=== PATIENT | female | born 1990 | race Caucasian/White ===

== ENCOUNTER → 2017-06-19 | Outpatient (CLI) | payer BC ==
[~2017-06-19] MED LIST: CIPR500 PO; FLUC150A PO; HYDACE5 PO; IBUP600 PO; IBUP800 PO; IRON; METO10 PO; MULVITMINE PO; NYST100P TOP; NYST100TC TOP; OXYACE5T PO; PRENATALS; PROM25 PO
[2017-06-20 10:47] LABS: Candida species (DNA Probe) Negative (NEGATIVE); G. vaginalis (DNA Probe) Negative (NEGATIVE); T. vaginalis (DNA Probe) Negative (NEGATIVE)
== END | disposition home or self-care (01) ==
LOC: LAB 09:35
PROVIDERS: Physician Assistant
DX: N89.8 Other specified noninflammatory disorders of vagina (principal)
CPT/HCPCS: 87480; 87510; 87660

== ENCOUNTER → 2018-05-04 | Outpatient (CLI) | payer BC | LOC: LAB 12:15 → LAB SHORT 12:15 | DX: L08.89 Other specified local infections of the skin and subcutaneous tissue (principal) | CPT/HCPCS: 87070; 87205 ==

== ENCOUNTER 2021-01-18 06:10 | Day surgery (SDC) | payer BC ==
[~2021-01-18] VITALS: Ht 162.6 cm; Wt 111.0 kg
[2021-01-18] MEDS ORDERED: Lamictal150 MG PO (06:39)
[2021-01-18] MEDS ORDERED: CLON.5 PO (06:40)
--- NOTE | 2021-01-18 07:14 | NUR ---
ALMOST ALL JEWELRY REMOVED. ONE PIERCING REMAINS IN RIGHT UPPER EAR, TAPED AND PATIENT SIGNED NON-REMOVAL FORM.
--- NOTE | 2021-01-18 07:28 | NUR ---
PT ALSO HAS PIERCING IN RT NOSTRIL THAT HAS BEEN TAPED. SHE HAS SIGNED THE NON-REMOVAL FORM.
--- NOTE | 2021-01-18 08:46 | NUR ---
Discharge instructions reviewed with patient. Patient verbalizes understanding. Copy given to patient to take home.
--- NOTE | 2021-01-18 08:59 | NUR ---
Discharged via wheelchair to private car for ride home.
== END 2021-01-18 09:00 | disposition home or self-care (01) ==
LOC: ORSCMMR 06:10 → ORSCSDS 07:30 → ORSCMMR 07:30 → ORD 07:30 → ORSCMMR 09:00
PROVIDERS: Obstetrics & Gynecology
PROC: 0UPD8HZ Removal of Contraceptive Device from Uterus and Cervix, Via Natural or Artificial Opening Endoscopic (ICD-10-PCS; principal; 2021-01-18 07:30)
DX: T83.32XA Displacement of intrauterine contraceptive device, initial encounter (principal); Z79.899 Other long term (current) drug therapy
CPT/HCPCS: 88300; A9270; J1100; J2405; J2704; J3010; J7120

== ENCOUNTER 2024-12-17 00:24 | Emergency (ER) | payer OTHER ==
[~2024-12-17] VITALS: Ht 157.5 cm; Wt 113.4 kg
[~2024-12-17 00:24] MED LIST changes: +CLON.5 PO; +Lamictal150 MG PO
[2024-12-17] MEDS ORDERED: Ondansetron HCl 2 MG / ML 2ML Vial IV PRN (01:05)
[2024-12-17 01:12] LABS: BASOPHILS ABSOLUTE AUTO 0.03 K/mm3 (0.00-0.23); BASOPHILS PERCENT AUTO 0 % (0-2); EOSINOPHILS ABSOLUTE AUTO 0.12 K/mm3 (0.00-0.68); EOSINOPHILS PERCENT AUTO 1 % (0-6); Hematocrit 36.2 % (33.0-51.0); Hemoglobin 12.0 g/dL (11.5-16.0); IMMATURE GRAN ABSOLUTE AUTO 0.04 K/mm3 (0.00-0.10); IMMATURE GRAN PERCENT AUTO 0 % (0-1); LYMPHOCYTES ABSOLUTE AUTO 2.18 K/mm3 (0.84-5.20); LYMPHOCYTES PERCENT AUTO 22 % (21-46); MONOCYTES ABSOLUTE AUTO 0.69 K/mm3 (0.16-1.47); MONOCYTES PERCENT AUTO 7 % (4-13); Mean Corpuscular HGB Conc 33.1 g/dL (31.5-36.5); Mean Corpuscular Volume 84 fL (80-100); NEUTROPHILS ABSOLUTE AUTO 7.02 K/mm3 (1.96-9.15); NEUTROPHILS PERCENT AUTO 70 % (41-73); NRBC ABSOLUTE 0.00 K/mm3 (0.00-0.02); NRBC Auto 0.0 /100 WBC (0.0-0.2); Platelet Count 225 K/mm3 (150-400); RDW Coefficient Variation 13.2 % (11.7-14.2); RDW Standard Deviation 40.9 fL (35.1-46.3)
[2024-12-17 01:13] LABS: Source, Urine Clean Catch
[2024-12-17 01:25] LABS: Bilirubin, Urine Neg (Neg); Glucose Qualitative, Urine Neg (Neg); Ketones, Urine Neg (Neg); Leukocyte Esterase, Urine Neg (Neg); Protein, Urine 1+ (Neg); Specific Gravity, Urine 1.015 (1.003-1.022); Urobilinogen, Urine 2+ (Normal)
[2024-12-17 01:30] LABS: Color, Urine Yellow (P-Yellow)
[2024-12-17 01:32] LABS: Red Blood Cells, Urine 0-2 /hpf (0-2); White Blood Cells, Urine 0-2 /hpf (0-5)
[2024-12-17 01:32] LABS: Alanine Aminotransfer (ALT/SGP 93.0 U/L (12-78); Albumin, Blood 3.9 g/dL (3.4-5.0); Albumin/Globulin Ratio 1.1 (0.8-1.8); Anion Gap 9.0 mmol/L (3-11); Aspartate Aminotrans (AST/SGOT 137.0 U/L (12-37); Bilirubin, Total 0.8 mg/dL (0.1-1.0); Blood Urea Nitrogen 10.0 mg/dL (8-24); CO2, Blood 24.0 mmol/L (21-32); Calcium, Blood 8.3 mg/dL (8.5-10.1); Chloride, Blood 107.0 mmol/L (98-108); Creatinine, Blood 0.65 mg/dL (0.40-1.00); Globulin, Blood 3.6 g/dL (2.2-4.0); Glucose, Blood 118.0 mg/dL (70-99); Potassium, Blood 3.9 mmol/L (3.5-5.5); Sodium, Blood 136.0 mmol/L (136-145); Total Protein, Blood 7.5 g/dL (6.4-8.2)
[2024-12-17] MEDS ORDERED: NS 1,000 ML IV SCH (02:50)
[2024-12-17] MEDS ORDERED: FentaNYL Citrate 50 MCG/ML 2 ML Injection IV PRN (02:50)
[2024-12-17] MEDS ORDERED: Lidocaine 2% Viscous Soln 15 ML UDC PO ONE (04:40)
[2024-12-17] MEDS ORDERED: PANT40 PO (04:55)
[2024-12-17] MEDS ORDERED: Pantoprazole Sodium 40 MG Injection IV ONE (04:55)
[2024-12-17] MEDS ORDERED: ALMACONE SUSPE355 ML PO (04:55)
[2024-12-17 05:00] VITALS: BP 109/80
== END 2024-12-17 05:13 | disposition home or self-care (01) ==
LOC: ER 00:24
PROVIDERS: Emergency Medicine
DX: K21.9 Gastro-esophageal reflux disease without esophagitis (principal); E86.0 Dehydration; R74.01 Elevation of levels of liver transaminase levels; R73.9 Hyperglycemia, unspecified; Z59.89 Other problems related to housing and economic circumstances; J45.909 Unspecified asthma, uncomplicated; Z79.899 Other long term (current) drug therapy; Z68.42 Body mass index [BMI] 45.0-49.9, adult
CPT/HCPCS: 76705; 80053; 81001; 83690; 84484; 85025; 93005; 93010; 96374; 96375; 99284-25; A9270; J2405; J2470; J3010; J7030